=== PATIENT | male | born 2005 | race Caucasian/White ===

== ENCOUNTER 2023-12-20 18:13 | Emergency (ER) | payer OTHER, SELFPAY ==
[2023-12-20 18:26] VITALS: BP 115/73; PULSE 74; RESP 18; TEMP 37.5; O2SAT 98; BMI 24.3
--- NOTE | 2023-12-20 18:58 | XR_ITS ---
Patient: INGRID YANG Facility:?[facility] Patient ID:?[id number] Site Patient ID:?[id number]. Site :?[id number] Study:?XRay-Extremity Right SHOULDER-12/20/2023 7:06:55 PM Ordering Physician:?DR. ENCARNACION Final Report: Indication: Trauma, fall. Technique: Right shoulder 3 views. Comparison: None. Findings/Impression: Bones: Anterior dislocation of the glenohumeral joint. No fracture. Soft tissues: Unremarkable. Dictated by Cesar Vasquez MD @ 12/20/2023 7:38:21 PM Signed by:?Cesar Vasquez MD @12/20/2023 7:38:21 PM (Electronic Signature)
--- NOTE | 2023-12-20 19:30 | XR_ITS ---
Patient: INGRID YANG Facility:?[facility] Patient ID:?[id number] Site Patient ID:?[id number]. Site :?[id number] Study:?XRay-Shoulder Right -12/20/2023 7:56:17 PM Ordering Physician:?Mami Hull Final Report: Indication: Postreduction. Technique: Right shoulder 2 views. Comparison: December 20, 2023. Findings/Impression: Successful reduction. Bone alignment is now normal. No fracture or other new abnormality. Dictated by Cesar Vasquez MD @ 12/20/2023 8:50:01 PM Signed by:?Cesar Vasquez MD @12/20/2023 8:50:01 PM (Electronic Signature)
[2023-12-20] MEDS: LIDOCAINE 1 % PF 30 ML INJECTION (19:35)
--- NOTE | 2023-12-20 19:58 | ED.UPPEXIN ---
HPI - Extremity Injury (Upper) General Chief Complaint: Extremity Pain/Injury, Upper Stated Complaint: right arm injury Time Seen by Provider: 12/20/23 18:15 History of Present Illness HPI narrative: This 18-year-old male comes in with an injury to his right shoulder that occurred just prior to arrival. He was playing pickle ball and had his arm extended and now feels pain in his right shoulder. He states that he heard and felt a pop when the injury occurred. He arrives with his arm held at full adduction and there is some evidence of anterior fullness typical of a dislocation. He states that he has not had a prior injury to this shoulder. Related Data Home Medications Medication Instructions Recorded Confirmed No Known Home Medications 12/20/23 12/20/23 Allergies Allergy/AdvReac Type Severity Reaction Status Date / Time No Known Drug Allergies Allergy Verified 12/20/23 18:29 Review of Systems Status of ROS: Reports: 10 or more systems reviewed and unremarkable except as noted in History and below Narrative: Constitutional: No fevers, no weight gain or loss. Eyes: No discharge. No vision changes. HENT: No congestion, no sore throat, no ear pain. Cardiovascular: No chest pain, no palpitations. Respiratory: No shortness of breath, no wheezes, no cough. Gastrointestinal: No abdominal pain, no vomiting, no diarrhea. Genitourinary: No dysuria, no hematuria. Musculoskeletal: Right shoulder injury as described above. Skin: No rashes, no pruritis. Neurological: No dizziness, weakness, sensory change, speech change. Endo/Heme/Allergies: No bruising or bleeding. No polydipsia. Pysch: no suicidality, no anxiety, no insomnia. All other systems reviewed and are negative. PFSH PFSH Social History Smoking Status: Never smoker Do you use any of these nicotine containing products: None How often do you have a drink containing alcohol: never How often do you have six or more drinks on one occasion: Never AUDIT-C Alcohol total score: 0 Non-prescribed substance use: denies use service: No Exam Narrative: Exam Narrative: Constitutional: Well-developed, well-nourished, no acute distress. HEENT: Normocephalic, atraumatic. Neck: Normal range of motion. Nontender. Supple. Heart: Regular. No murmurs. Normal rate. Intact distal pulses. Lungs: Clear to auscultation. No chest discomfort. No wheezes, rhonchi, or rales. Abdomen: Normal bowel sounds. Nontender. No rebound tenderness. Genitalia: Deferred. Back: No midline tenderness. Normal range of motion. Extremities: The patient does not want to move his right arm because of pain. He does have some anterior fullness typical of dislocation. No tenderness when palpating along the clavicle. Skin: Intact. No rash. Warm. No erythema or pallor. Neurologic: No altered sensation. No weakness. Alert and oriented. Psychiatric: No suicidality. No anxiety or depression. No insomnia. Nursing notes and vitals signs are reviewed. Const: Vital Signs, click to edit/add: Vital Signs - 24 hr 12/20/23 18:26 Temperature 99.5 F Pulse Rate [Pulse Oximeter] 74 Respiratory Rate 18 Blood Pressure [Le ft Upper Arm] 115/73 Pulse Oximetry 98 Oxygen Delivery Me thod Room Air Course Vital Signs Vital signs: Initial Vital Signs Temperature 99.5 F 12/20/23 18:26 Temperature Source Temporal Artery Scan 12/20/23 18:26 Pulse Rate 74 12/20/23 18:26 Respiratory Rate 18 12/20/23 18:26 Blood Pressure 115/73 12/20/23 18:26 Blood Pressure Mean 87 12/20/23 18:26 Blood Pressure Position Sitting 12/20/23 18:26 Pulse Oximetry 98 12/20/23 18:26 Oxygen Delivery Method Room Air 12/20/23 18:26 Vital Signs Temperature 99.5 F 12/20/23 18:26 Pulse Rate 74 12/20/23 18:26 Respiratory Rate 18 12/20/23 18:26 Blood Pressure 115/73 12/20/23 18:26 Pulse Oximetry 98 12/20/23 18:26 Oxygen Delivery Method Room Air 12/20/23 18:26 Temperature 99.5 F 12/20/23 18:26 Pulse Rate 74 12/20/23 18:26 Respiratory Rate 18 12/20/23 18:26 Blood Pressure 115/73 12/20/23 18:26 Pulse Oximetry 98 12/20/23 18:26 Oxygen Delivery Method Room Air 12/20/23 18:26 Medications Administered Medications: Generic Name Dose Route Start Last Admin Trade Name Freq PRN Reason Stop Dose Admin Lidocaine HCl 30 ml 12/20/23 19:31 12/20/23 19:35 Lidocaine 1 % Pf 30 Ml INJECTION 30 ml ONCE PRN Administration MDM - Extremity Injury (Upper) MDM Narrative Medical decision making narrative: X-ray images are obtained of the right shoulder and which does show evidence of an anterior dislocation. I do not see any evidence of fracture. The patient received an intra-articular injection of 6 mL of 1% lidocaine into the glenohumeral joint from a posterior approach. After 5-10 minutes this did provide rather excellent pain relief. I was able to massage his musculature around the shoulder and slowly applied traction and external rotation. The shoulder spontaneously reduced in this maneuver. Follow-up x-ray shows the head of the humerus in the proper position in its glenohumeral space. Radiology reports regarding these images are pending. The patient did receive a sling and instructions were given regarding follow-up and return to activity. Discharge Plan Discharge Clinical Impression: Anterior shoulder dislocation Patient Disposition: Home, Self-Care Condition: Improved Additional Instructions: Wear sling as needed. Increase activity as tolerated. Follow up with MD or orthopedic clinic as needed. Return if recurrent or worsening symptoms happen. Prescriptions: No Action No Known Home Medications Follow Up/Referrals: Provider,Not a Local [Primary Care Provider] - Stand Alone Forms: [employer] Info Instructions
== END 2023-12-20 20:07 | disposition home or self-care (01) ==
PROVIDERS: Emergency Provider Emergency Medicine Emergency Medical Services
DX: S43.084A Other dislocation of right shoulder joint, initial encounter (principal); X50.9XXA Other and unspecified overexertion or strenuous movements or postures, initial encounter; Y93.73 Activity, racquet and hand sports
CPT/HCPCS: 23650; 73030; 99284; J2001